=== PATIENT | male | born 1995 | race Two or more races ===

== ENCOUNTER 2021-01-12 06:04 | Emergency (ER) | payer OTHER ==
[~2021-01-12] VITALS: Ht 190.5 cm; Wt 74.8 kg
[2021-01-12] MEDS ORDERED: LIDOCAINE 1% HCL (LOCAL ANESTH.) INJ 20ML MDV IJ ONE (10:00)
[2021-01-12 10:56] VITALS: BP 141/107
[2021-01-12] MEDS ORDERED: cefTRIAXone SOD 1,000 MG VL IM ONE (11:00)
== END 2021-01-12 11:18 | disposition home or self-care (01) ==
LOC: ER 06:04
DX: S01.511A Laceration without foreign body of lip, initial encounter (principal); R51.9 Headache, unspecified; V49.49XA Driver injured in collision with other motor vehicles in traffic accident, initial encounter; Y93.89 Activity, other specified; Y92.488 Other paved roadways as the place of occurrence of the external cause; Y99.8 Other external cause status
CPT/HCPCS: 12016; 70450; 70486; 71046; 72125; 96372; 99285; J0696; J2001; 12015